=== PATIENT | male | born 1985 | race Caucasian/White ===

== ENCOUNTER 2022-01-16 14:13 | Emergency (ER) | payer OTHER ==
[2022-01-16 14:48] LABS: HEMOGLOBIN 14.8 gm/dl (14.0-17.5); RED BLOOD COUNT 4.45 M/UL (4.20-5.50); WHITE BLOOD COUNT 6.9 K/UL (4.5-11.0)
[2022-01-16 15:16] LABS: BUN/CREATININE RATIO 16 (0-10)
== END 2022-01-16 19:35 | disposition home or self-care (01) ==
LOC: ER1 14:13
PROVIDERS: Emergency Medicine
DX: R42 Dizziness and giddiness (principal); I10 Essential (primary) hypertension; F17.200 Nicotine dependence, unspecified, uncomplicated; Z20.822 Contact with and (suspected) exposure to COVID-19
CPT/HCPCS: 70450; 70496; 70498; 71045; 80053; 81001; 82550; 82553; 82962; 84484; 85025; 85379; 93005; 99284; Q9967; U0002